=== PATIENT | female | born 1985 | race Caucasian/White ===

== ENCOUNTER 2017-12-06 05:10 | Inpatient (IN) | payer BC, OTHER ==
[2017-12-06] MEDS ORDERED: Sodium Chloride 0.9% 2.5 ML Syringe FLUSH PRN (05:35)
[2017-12-06] MEDS ORDERED: Sodium Chloride 0.9% 10 ML Syringe FLUSH PRN (05:35)
[2017-12-06] MEDS ORDERED: Citric Acid/Sodium Citrate Solution 30 ML Cup PO SCH (05:45)
[2017-12-06] MEDS ORDERED: Oxytocin/0.9 % Sodium Chloride 30 UNIT/500 ML BAG IV SCH (05:45)
[2017-12-06] MEDS: Lactated Ringers 1,000 ML IV SCH ×2 (05:56→06:55)
--- NOTE | 2017-12-06 06:59 | PCM.PREANE ---
Preanesthetic Assessment - Anesthesia/Transfusion/Family Hx Anesthesia History: Prior Anesthesia Without Reaction Family History of Anesthesia Reaction: No Transfusion History: No Prior Transfusion(s) - Review of Systems General: No Symptoms Pulmonary: No Symptoms Cardiovascular: No Symptoms Gastrointestinal: No Symptoms Neurological: No Symptoms Other: Reports: None - Physical Assessment NPO Status Date: 12/05/17 Height: 1.73 m Weight: 97.522 kg ASA Class: 2 Mental Status: Alert & Oriented x3 Airway Class: Mallampati = 1 Dentition: Reports: Normal Dentition ROM/Head Extension: Full Lungs: Clear to Auscultation, Normal Respiratory Effort Cardiovascular: Regular Rate, Regular Rhythm - Lab Values: Laboratory Last Values WBC 8.86 K/uL (4.0-11.0) 12/06/17 05:55 RBC 3.64 M/uL (4.30-5.90) L 12/06/17 05:55 Hgb 11.5 g/dL (12.0-16.0) L 12/06/17 05:55 Hct 32.4 % (36.0-46.0) L 12/06/17 05:55 MCV 89.0 fL (80.0-98.0) 12/06/17 05:55 MCH 31.6 pg (27.0-32.0) 12/06/17 05:55 MCHC 35.5 g/dL (31.0-37.0) 12/06/17 05:55 RDW Std Deviation 43.6 fl (28.0-62.0) 12/06/17 05:55 RDW Coeff of Kerwin 13 % (11.0-15.0) 12/06/17 05:55 Plt Count 209 K/uL (150-400) 12/06/17 05:55 MPV 10.60 fL (7.40-12.00) 12/06/17 05:55 Nucleated RBC % 0.0 /100WBC 12/06/17 05:55 Nucleated RBCs # 0 K/uL 12/06/17 05:55 Blood Type O POSITIVE 12/06/17 05:55 Antibody Screen NEGATIVE 12/06/17 05:55 - Allergies Allergies/Adverse Reactions: Allergies Allergy/AdvReac Type Severity Reaction Status Date / Time No Known Allergies Allergy Verified 12/03/17 13:16 - Anesthesia Plan Pre-Op Medication Ordered: Antacids - Acknowledgements Anesthesia Type Planned: Spinal Pt an Appropriate Candidate for the Planned Anesthesia: Yes Alternatives and Risks of Anesthesia Discussed w Pt/Guardian: Yes Pt/Guardian Understands and Agrees with Anesthesia Plan: Yes Additional Comments: prior c/s, now for scheduled elective c/s. PMH: has pituitarymicroadenoma, asymptomatic, discovered upon hormone level eval. No headaches or visual changes. PLAN: spinal with duramorph. 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: Musculoskeletal History: Reports: Fracture Other Musculoskeletal History: fx kathie as a child Endocrine/Metabolic History: Reports: Other (See Below) Other Endocrine/Metabolic History: pituitary adenoma - Past Surgical History Head Surgeries/Procedures: Reports: None Female Surgical History: Reports: Section - SUBSTANCE USE Smoking Status *Q: Never Smoker Second Hand Smoke Exposure: No Recreational Drug Use History: No - HOME MEDS Home Medications: Home Meds Fish Oil/[place]-3 Fatty Acids [Fish Oil 1,000 MG] 1 tab PO DAILY 12/03/17 [ History] Magnesium Oxide [Magnesium] 1 tab PO DAILY 12/03/17 [History] PNV95/Ferrous Fumarate/FA [ Vitamin Tablet] 1 tab PO DAILY 12/03/17 [ History] - CURRENT (IN HOUSE) MEDS Current Meds: Current Medications Citric Acid/Sodium Citrate (Bicitra Solution) 30 ml PO .ONCE GEORGES Cefazolin Sodium/Dextrose 2 gm (/ Premix) 50 mls @ 100 mls/hr IV ONETIME ONE Stop: 12/06/17 07:29 Lactated Ringer's (Ringers, Lactated) 1,000 mls @ 500 mls/hr IV .BOLUS GEORGES Last Admin: 12/06/17 06:55 Dose: 500 mls/hr Oxytocin/Sodium Chloride (Oxytocin 30 Unit/500 Ml-Ns) 30 unit in 500 mls @ 250 mls/hr IV TITRATE GEORGES Sodium Chloride (Saline Flush) 10 ml FLUSH ASDIRECTED PRN PRN Reason: Keep Vein Open Sodium Chloride (Saline Flush) 2.5 ml FLUSH ASDIRECTED PRN PRN Reason: Keep Vein Open
[2017-12-06] MEDS ORDERED: ceFAZolin 2 GM in Premix Bag 1 BAG IV ONE (07:00)
[2017-12-06] MEDS ORDERED: Oxytocin 10 Units/1 ML SDV ONE (07:04)
[2017-12-06] MEDS ORDERED: ceFAZolin/Dextrose,Iso-Osmotic 2 GM/50 ML Duplex Bag IV ONE (07:04)
[2017-12-06] MEDS ORDERED: Phenylephrine/Normal Saline 100 MCG/ML 10 ML Syringe ONE (07:04)
[2017-12-06] MEDS ORDERED: Morphine PF 1 MG/ML Amp ONE (07:05)
[2017-12-06] MEDS ORDERED: diphenhydrAMINE 50 MG/ML SDV ONE (08:17)
[2017-12-06] MEDS ORDERED: fentaNYL 100 MCG/2 ML SDV ONE (08:33)
[2017-12-06] MEDS ORDERED: Midazolam 1 MG/ML 2 ML SDV ONE (08:40)
[2017-12-06] MEDS ORDERED: Acetaminophen/oxyCODONE 325-5 MG Tab PO PRN ×2 (09:01)
[2017-12-06] MEDS ORDERED: Lanolin 100% Cream 7 GM Tube TOP PRN (09:01)
[2017-12-06] MEDS ORDERED: Ondansetron 4 MG/2 ML SDV IV PRN (09:01)
[2017-12-06] MEDS ORDERED: diphenhydrAMINE 50 MG/ML SDV IVPUSH PRN (09:01)
[2017-12-06] MEDS ORDERED: Bisacodyl 10 MG Supp RECTAL PRN (09:01)
--- NOTE | 2017-12-06 09:06 | PCM.OPNOTE ---
- General Post-Op/Procedure Note Date of Surgery/Procedure: 12/06/17 Operative Procedure(s): Repeat cesearan section Findings: Male , t [id number], Apgars 8 and 9. Grossly normal placenta with 3 vessel cord. Pre Op Diagnosis: 39 weeks. Previous , declined Post-Op Diagnosis: Same Anesthesia Technique: Spinal Primary Surgeon: Ching Arellano Fluid Replacement, Intraop: 1,500 Output, Urine Amount: 90 EBL in mLs: 650 Complications: None Condition: Good
[2017-12-06] MEDS: Ketorolac 30 MG/ML SDV IVPUSH SCH ×3 (09:12→21:30)
[2017-12-06] MEDS: fentaNYL 100 MCG/2 ML SDV IVPUSH PRN ×2 (09:13→09:23)
[2017-12-06] MEDS ORDERED: Lactated Ringers 1,000 ML IV SCH (09:15)
[2017-12-06] MEDS: Acetaminophen/oxyCODONE 325-5 MG Tab PO PRN (09:17)
[2017-12-06] MEDS: Nalbuphine 10 MG/ML 10 ML MDV IVPUSH PRN ×3 (11:41→20:05)
--- NOTE | 2017-12-06 18:50 | OR ---
SURGEON: Ching Arellano MD DATE OF PROCEDURE: 12/06/2017 PREOPERATIVE DIAGNOSES: 1. Term at 39 weeks gestation. 2. Previous section, desires repeat. POSTOPERATIVE DIAGNOSES: 1. Term at 39 weeks gestation. 2. Previous section, desires repeat. 3. Delivered. PROCEDURE: Repeat section via Pfannenstiel ANESTHESIA: Spinal. ESTIMATED BLOOD LOSS: 650 mL. FLUIDS: 1500 mL of crystalloid. URINE OUTPUT: 19 mL. COMPLICATIONS: None. DISPOSITION: Stable to recovery room. INDICATION: The patient is a 32-year-old G2, P1-0-0-1, at 39 weeks gestation with history of one prior section and desires a repeat. Her has been uncomplicated. FINDINGS: Male infant, weight 3430 g, score 8 and 9 at 1 and 5 minutes respectively. Grossly normal appearing uterus, tubes, and ovaries. Grossly normal placenta with 3-vessel cord. DESCRIPTION OF PROCEDURE: The patient was taken to the operating room where spinal was performed and found to be adequate. She was prepped and draped in the usual sterile fashion in dorsal supine position with leftward tilt. She received 2 g of Ancef. SCDs in place. Appropriate time-out was held. A Pfannenstiel skin incision was then made with a scalpel through the old incision and carried through to the underlying layer of fascia with the Bovie. The fascia was scored in the midline and extended laterally with the Bovie and the Dalton scissors. The superior aspect of the fascial incision was grasped with Cristhian clamps, elevated, and the underlying rectus muscle was dissected off with the scalpel. Attention was then turned to the inferior aspect of the incision, which in similar fashion was grasped, tented up with Cristhian clamps. Underlying rectus muscle was dissected off with the scalpel. The rectus muscle was then in the midline and the parietal peritoneum was identified and entered sharply. Sweep of the intra- abdominal cavity was performed and with no adherent vital organs unto the peritoneal layer, the peritoneal defect was extended upwards and downwards with good visualization of the bladder and then further stretched laterally bluntly. A self-retaining Carloz O retractor was then placed into the abdominal cavity. The vesicouterine peritoneum was identified, grasped with pickups, and entered sharply with the Metzenbaum scissors. This incision was extended laterally and bladder flap was created digitally. The lower uterine segment was then incised in a transverse fashion with the scalpel and the uterine incision was extended upwards and downwards bluntly. The infant's head was then delivered atraumatically followed by the body. The baby was vigorous and cried spontaneously at . The cord was double clamped and cut and the infant was handed over to the waiting nursery team. Cord blood and gas samples were collected. The placenta was then delivered spontaneously via massage. The uterus was cleaned of all clots and debris. The hysterotomy was repaired in 2 layers using 0 Vicryl, the first layer was closed in a running locked fashion and second imbricating layer was performed to obtain excellent hemostasis. One [id number] hemostatic suture was placed within the lower uterine segment towards the left angle to control bleeding. Thereafter, the hysterotomy site was hemostatic. Copious irrigation was performed, and the paracolic gutters were cleared of all clots and debris. The Carloz O retractor was then removed and the peritoneal edges were identified and the peritoneum was closed with 2-0 Vicryl in a running fashion. The muscle layer was then reapproximated with interrupted sutures of the same suture. The subfascial tissue was examined and found to have excellent hemostasis. The fascia was then approximated with 0 Vicryl in a running fashion. The subcuticular layers were irrigated and made hemostatic with the electrocautery. The skin was then closed in subcuticular fashion using 4-0 Monocryl suture. The patient tolerated the procedure well. Sponge, instrument, and needle counts were correct at the end of the delivery. The patient was taken to the recovery in stable condition and baby to nursery. SYDNEY / KANIKA /[id number] PRO
[2017-12-06] MEDS: Docusate Sodium 100 MG Cap PO SCH (20:33)
[2017-12-07] MEDS: Ketorolac 30 MG/ML SDV IVPUSH SCH ×2 (03:34→10:03)
--- NOTE | 2017-12-07 07:58 | PCM.PNPP ---
- General Info Date of Service: 12/07/17 Functional Status: Reports: Pain Controlled, Tolerating Diet, Ambulating, Urinating - Review of Systems General: Denies: Fever, Weakness Pulmonary: Denies: Shortness of Breath Cardiovascular: Denies: Chest Pain, Palpitations, Lightheadedness Gastrointestinal: Denies: Abdominal Pain, Nausea, Vomiting Genitourinary: Denies: Flank Pain Skin: Reports: No Symptoms Psychiatric: Reports: No Symptoms - General Info Date of Service: 12/07/17 - Patient Data Vital Signs - Most Recent: Last Vital Signs Temp 36.7 C 12/07/17 04:00 Pulse 84 12/07/17 06:00 Resp 17 12/07/17 06:00 BP 125/58 L 12/07/17 04:00 Pulse Ox 99 12/07/17 06:00 Weight - Most Recent: 97.522 kg I&O - Last 24 Hours: Intake & Output 12/06/17 12/07/17 12/07/17 22:59 06:59 14:59 Intake Total 3300 1000 Output Total 5200 300 Balance -1900 700 Lab Results - Last 24 Hours: Laboratory Results - last 24 hr 12/06/17 12/07/17 Range/Units 08:05 05:15 Hgb 10.7 L (12.0-16.0) g/dL Hct 31.0 L (36.0-46.0) % Cord ABG pH 7.379 (7.18-7.38) Cord ABG Base Excess -1 H (-10--2) Cord VBG pH 7.317 (7.25-7.45) Cord VBG Base Excess -3 (-10--2) Med Orders - Current: Current Medications Bisacodyl (Dulcolax) 10 mg RECTAL .ONCE PRN PRN Reason: Constipation Diphenhydramine HCl (Benadryl) 25 mg IVPUSH Q6H PRN PRN Reason: Itching or Nausea Docusate Sodium (Colace) 100 mg PO BID GEORGES Last Admin: 12/06/17 20:33 Dose: 100 mg Emollient Ointment (Lansinoh Hpa) 0 gm TOP ASDIRECTED PRN PRN Reason: Sore Nipples Fentanyl (Sublimaze) 50 mcg IVPUSH Q5M PRN PRN Reason: Pain (severe 7-10) Stop: 12/07/17 08:57 Last Admin: 12/06/17 09:23 Dose: 50 mcg Lactated Ringer's (Ringers, Lactated) 1,000 mls @ 125 mls/hr IV ASDIRECTED [facility] Ibuprofen (Motrin) 800 mg PO Q8H PRN PRN Reason: mild pain or fever Ketorolac Tromethamine (Toradol) 30 mg IVPUSH Q6H GEORGES Stop: 12/07/17 09:16 Last Admin: 12/07/17 03:34 Dose: 30 mg Nalbuphine HCl (Nubain) 2.5 mg IVPUSH Q3H PRN PRN Reason: Pruritis Stop: 12/07/17 08:58 Last Admin: 12/06/17 20:05 Dose: 2.5 mg Ondansetron HCl (Zofran) 4 mg IV Q4H PRN PRN Reason: Nausea/Vomiting Oxycodone/Acetaminophen (Percocet 325-5 Mg) 2 tab PO ONETIME PRN PRN Reason: Pain (moderate 4-6) Last Admin: 12/06/17 09:17 Dose: 2 tab Oxycodone/Acetaminophen (Percocet 325-5 Mg) 1 tab PO Q4H PRN PRN Reason: Pain (moderate 4-6) Oxycodone/Acetaminophen (Percocet 325-5 Mg) 2 tab PO Q4H PRN PRN Reason: Pain (moderate 4-6) Discontinued Medications Cefazolin Sodium/Dextrose (Ancef) Confirm Administered Dose 2 gm IV .STK-MED ONE Stop: 12/06/17 07:05 Citric Acid/Sodium Citrate (Bicitra Solution) 30 ml PO .ONCE GEORGES Last Admin: 12/06/17 07:24 Dose: 30 ml Diphenhydramine HCl (Benadryl) Confirm Administered Dose 50 mg .ROUTE .STK-MED ONE Stop: 12/06/17 08:18 Fentanyl (Sublimaze) Confirm Administered Dose 100 mcg .ROUTE .STK-MED ONE Stop: 12/06/17 08:34 Cefazolin Sodium/Dextrose 2 gm (/ Premix) 50 mls @ 100 mls/hr IV ONETIME ONE Stop: 12/06/17 07:29 Lactated Ringer's (Ringers, Lactated) 1,000 mls @ 500 mls/hr IV .BOLUS GEORGES Last Admin: 12/06/17 06:55 Dose: 500 mls/hr Oxytocin/Sodium Chloride (Oxytocin 30 Unit/500 Ml-Ns) 30 unit in 500 mls @ 250 mls/hr IV TITRATE GEORGES Midazolam HCl (Versed 1 Mg/Ml) Confirm Administered Dose 2 mg .ROUTE .STK-MED ONE Stop: 12/06/17 08:41 Morphine Sulfate (Duramorph Pf) Confirm Administered Dose 1 mg .ROUTE .STK-MED ONE Stop: 12/06/17 07:06 Oxytocin (Pitocin) Confirm Administered Dose 20 unit .ROUTE .STK-MED ONE Stop: 12/06/17 07:05 Phenylephrine HCl (Phenylephrine In Ns 100 Mcg/Ml) Confirm Administered Dose 1 mg .ROUTE .STK-MED ONE Stop: 12/06/17 07:05 Sodium Chloride (Saline Flush) 10 ml FLUSH ASDIRECTED PRN PRN Reason: Keep Vein Open Sodium Chloride (Saline Flush) 2.5 ml FLUSH ASDIRECTED PRN PRN Reason: Keep Vein Open - Recovery Exam Fundal Tone: Firm Fundal Level: 1 Fingerbreadths Below Umbilicus Fundal Placement: Midline Lochia Amount: Small Lochia Color: Rubra/Red Perineum Description: Intact, Minimal Bruising/Swelling Episiotomy/Laceration: None Bladder Status: Voiding Urinary Elimination: Indwelling Catheter - Exam General: Alert, Oriented Lungs: Normal Respiratory Effort Cardiovascular: Regular Rate, Regular Rhythm GI/Abdominal Exam: Soft Extremities: Pedal Edema (1+). No: Moy's Sign Skin: Warm, Dry, Intact Wound/Incisions: Healing Well, No Drainage. No: Erythema Psy/Mental Status: Alert, Normal Affect - Problem List & Annotations (1) delivery delivered SNOMED Code(s): 381457260 Code(s): O82 - ENCOUNTER FOR DELIVERY WITHOUT INDICATION Status: Acute Current Visit: Yes - Problem List Review Problem List Initiated/Reviewed/Updated: Yes - Assessment Assessment:: POD 1 status post repeat c section - Plan Plan:: Continue postoperative cares. Ambulate halls, may shower. VS and labs are stable.
[2017-12-07] MEDS: Docusate Sodium 100 MG Cap PO SCH ×2 (10:04→20:37)
[2017-12-07] MEDS: Ibuprofen 800 MG Tab PO PRN ×2 (14:30→23:54)
--- NOTE | 2017-12-07 22:21 | PCM48HPAN ---
Post Anesthesia Note - EVALUATION WITHIN 48HRS OF ANESTHETIC Vital Signs in Normal Range: Yes Patient Participated in Evaluation: Yes Respiratory Function Stable: Yes Airway Patent: Yes Cardiovascular Function Stable: Yes Hydration Status Stable: Yes Pain Control Satisfactory: Yes Nausea and Vomiting Control Satisfactory: Yes Mental Status Recovered: Yes Resp Rate: 18
[2017-12-08] MEDS: Acetaminophen/oxyCODONE 325-5 MG Tab PO PRN (07:51)
--- NOTE | 2017-12-08 09:34 | PCM.PNPP ---
- General Info Date of Service: 12/08/17 Functional Status: Reports: Pain Controlled, Tolerating Diet, Ambulating, Urinating - Review of Systems General: Denies: Fever, Weakness, Fatigue Pulmonary: Denies: Shortness of Breath Cardiovascular: Denies: Chest Pain, Palpitations, Lightheadedness Gastrointestinal: Denies: Abdominal Pain, Nausea, Vomiting Genitourinary: Denies: Flank Pain Neurological: Reports: No Symptoms Psychiatric: Reports: No Symptoms - General Info Date of Service: 12/08/17 - Patient Data Vital Signs - Most Recent: Last Vital Signs Temp 36.4 C 12/08/17 08:00 Pulse 72 12/08/17 08:00 Resp 18 12/08/17 08:00 BP 116/64 12/08/17 08:00 Pulse Ox 98 12/08/17 08:00 Weight - Most Recent: 97.522 kg Med Orders - Current: Current Medications Bisacodyl (Dulcolax) 10 mg RECTAL .ONCE PRN PRN Reason: Constipation Diphenhydramine HCl (Benadryl) 25 mg IVPUSH Q6H PRN PRN Reason: Itching or Nausea Docusate Sodium (Colace) 100 mg PO BID GEORGES Last Admin: 12/07/17 20:37 Dose: 100 mg Emollient Ointment (Lansinoh Hpa) 0 gm TOP ASDIRECTED PRN PRN Reason: Sore Nipples Lactated Ringer's (Ringers, Lactated) 1,000 mls @ 125 mls/hr IV ASDIRECTED GEORGES Ibuprofen (Motrin) 800 mg PO Q8H PRN PRN Reason: mild pain or fever Last Admin: 12/07/17 23:54 Dose: 800 mg Ondansetron HCl (Zofran) 4 mg IV Q4H PRN PRN Reason: Nausea/Vomiting Oxycodone/Acetaminophen (Percocet 325-5 Mg) 2 tab PO ONETIME PRN PRN Reason: Pain (moderate 4-6) Last Admin: 12/08/17 07:51 Dose: 2 tab Oxycodone/Acetaminophen (Percocet 325-5 Mg) 1 tab PO Q4H PRN PRN Reason: Pain (moderate 4-6) Oxycodone/Acetaminophen (Percocet 325-5 Mg) 2 tab PO Q4H PRN PRN Reason: Pain (moderate 4-6) Last Admin: 12/07/17 20:37 Dose: 2 tab Discontinued Medications Cefazolin Sodium/Dextrose (Ancef) Confirm Administered Dose 2 gm IV .STK-MED ONE Stop: 12/06/17 07:05 Citric Acid/Sodium Citrate (Bicitra Solution) 30 ml PO .ONCE GEORGES Last Admin: 12/06/17 07:24 Dose: 30 ml Diphenhydramine HCl (Benadryl) Confirm Administered Dose 50 mg .ROUTE .STK-MED ONE Stop: 12/06/17 08:18 Fentanyl (Sublimaze) Confirm Administered Dose 100 mcg .ROUTE .STK-MED ONE Stop: 12/06/17 08:34 Fentanyl (Sublimaze) 50 mcg IVPUSH Q5M PRN PRN Reason: Pain (severe 7-10) Stop: 12/07/17 08:57 Last Admin: 12/06/17 09:23 Dose: 50 mcg Cefazolin Sodium/Dextrose 2 gm (/ Premix) 50 mls @ 100 mls/hr IV ONETIME ONE Stop: 12/06/17 07:29 Lactated Ringer's (Ringers, Lactated) 1,000 mls @ 500 mls/hr IV .BOLUS GEORGES Last Admin: 12/06/17 06:55 Dose: 500 mls/hr Oxytocin/Sodium Chloride (Oxytocin 30 Unit/500 Ml-Ns) 30 unit in 500 mls @ 250 mls/hr IV TITRATE GEORGES Ketorolac Tromethamine (Toradol) 30 mg IVPUSH Q6H GEORGES Stop: 12/07/17 09:16 Last Admin: 12/07/17 10:03 Dose: 30 mg Midazolam HCl (Versed 1 Mg/Ml) Confirm Administered Dose 2 mg .ROUTE .STK-MED ONE Stop: 12/06/17 08:41 Morphine Sulfate (Duramorph Pf) Confirm Administered Dose 1 mg .ROUTE .STK-MED ONE Stop: 12/06/17 07:06 Nalbuphine HCl (Nubain) 2.5 mg IVPUSH Q3H PRN PRN Reason: Pruritis Stop: 12/07/17 08:58 Last Admin: 12/06/17 20:05 Dose: 2.5 mg Oxytocin (Pitocin) Confirm Administered Dose 20 unit .ROUTE .STK-MED ONE Stop: 12/06/17 07:05 Phenylephrine HCl (Phenylephrine In Ns 100 Mcg/Ml) Confirm Administered Dose 1 mg .ROUTE .STK-MED ONE Stop: 12/06/17 07:05 Sodium Chloride (Saline Flush) 10 ml FLUSH ASDIRECTED PRN PRN Reason: Keep Vein Open Sodium Chloride (Saline Flush) 2.5 ml FLUSH ASDIRECTED PRN PRN Reason: Keep Vein Open - Infant Interaction Infant Disposition, : in Room with Family - Recovery Exam Fundal Tone: Firm Fundal Level: 1 Fingerbreadths Below Umbilicus Fundal Placement: Midline Lochia Amount: Scant Lochia Color: Rubra/Red Perineum Description: Intact, Minimal Bruising/Swelling Episiotomy/Laceration: None Bladder Status: Voiding Urinary Elimination: Voided - Exam General: Alert, Oriented Lungs: Normal Respiratory Effort Cardiovascular: Regular Rate, Regular Rhythm GI/Abdominal Exam: Normal Bowel Sounds, Soft Extremities: Pedal Edema (trace). No: Moy's Sign Skin: Warm, Dry, Intact Wound/Incisions: Healing Well, No Drainage. No: Erythema Psy/Mental Status: Alert, Normal Affect - Problem List & Annotations (1) delivery delivered SNOMED Code(s): 478094225 Code(s): O82 - ENCOUNTER FOR DELIVERY WITHOUT INDICATION Status: Acute Current Visit: Yes - Problem List Review Problem List Initiated/Reviewed/Updated: Yes - My Orders Last 24 Hours: My Active Orders 12/08/17 09:31 Ready for Discharge [RC] PER UNIT ROUTINE - Assessment Assessment:: POD 2 status post repeat c section - Plan Plan:: Patient is doing well--she is ready to go home. Discharge instructions reviewed. Follow up at [facility] 2 and 6 weeks. Conitnue PNV daily. Infection and bleeding warnings reviewed.
[2017-12-09] MEDS ORDERED: Measles, Mumps & Rubella Vaccine 0.5 ML SDV SUBCUT ONE (09:01)
== END 2017-12-08 11:15 | disposition home or self-care (01) | DRG 766 ==
LOC: MW.OB 05:10
PROVIDERS: ADMIT Obstetrics & Gynecology; ATTEND Obstetrics & Gynecology
PROC: 10D00Z1 Extraction of Products of Conception, Low, Open Approach (ICD-10-PCS; principal; 2017-12-06)
DX: O34.211 Maternal care for low transverse scar from previous cesarean delivery (principal); Z3A.39 39 weeks gestation of pregnancy; Z37.0 Single live birth
CPT/HCPCS: 36415; 59025; 82803; 85014; 85018; 85027; 86850; 86900; 86901; A9270-GY; J0690; J1200; J1885; J2250; J2274; J2300; J2590; J3010; J7120